=== PATIENT | male | born 1970 | race Caucasian/White ===

== ENCOUNTER 2019-04-18 10:24 | Emergency (ER) | payer OTHER ==
[~2019-04-18] VITALS: Ht 180.3 cm; Wt 93.0 kg
[~2019-04-18 10:24] MED LIST: KETO10TA2 PO
== END 2019-04-18 14:47 | disposition home or self-care (01) ==
LOC: ER 10:24
DX: K58.9 Irritable bowel syndrome, unspecified (principal)